=== PATIENT | male | born 1955 | race Hispanic/Latino ===

== ENCOUNTER → 2020-03-31 | Day surgery (SDC) | payer MEDICARE, OTHER ==
[2020-03-26 12:28] LABS: BASOPHILS % 0.9 % (0.0-1.0); EOSINOPHILS # (AUTO) 0.1 (0.0-0.4); EOSINOPHILS % 2.2 % (0.0-6.0); HEMATOCRIT 30.2 % (38.2-49.6); HEMOGLOBIN 9.2 g/dL (14.0-18.0); LYMPHOCYTES # (AUTO) 0.8 (1.0-3.2); LYMPHOCYTES % 24.3 % (18.0-39.1); MEAN CORPUSCULAR HEMOGLOBIN 31.4 pg (28-32); MEAN CORPUSCULAR HGB CONC 30.5 g/dL (31-35); MEAN CORPUSCULAR VOLUME 103.1 fL (81-99); MONOCYTES # (AUTO) 0.5 (0.2-0.8); MONOCYTES % 16.2 % (4.4-11.3); NEUTROPHILS # (AUTO) 1.8 (2.1-6.9); NEUTROPHILS % 55.8 % (38.7-80.0); RED BLOOD COUNT 2.93 x10e6/uL (4.3-5.7); RED CELL DISTRIBUTION WIDTH 17.3 % (11.7-14.4)
[2020-03-26 12:34] LABS: PLATELET COUNT 30 x10e3/uL (140-360)
[2020-03-26 12:46] LABS: INR 1.52; PROTHROMBIN TIME 19.2 seconds (11.9-14.5)
[2020-03-26 12:47] LABS: PARTIAL THROMBOPLASTIN TIME 41.1 seconds (23.8-35.5)
[2020-03-26 12:51] LABS: ALBUMIN 1.9 g/dL (3.5-5.0); ALBUMIN/GLOBULIN RATIO 0.4 (0.8-2.0); ANION GAP 13.7 mmol/L (8-16); CALCIUM 7.8 mg/dL (8.4-10.2); CREATININE, SERUM 8.24 mg/dL (0.72-1.25); POTASSIUM 3.7 mmol/L (3.5-5.1)
--- NOTE | 2020-03-26 13:28 | Diagnostic Imaging Report ---
X-ray chest 2 views Comparison: None History: Preop Findings: Central airways unremarkable. Atherosclerotic tortuous aorta. Other mediastinal contours unremarkable. No focal lung disease. Left subpulmonic effusion. No pneumothorax. No acute skeletal abnormalities. Upper abdomen unremarkable. Impression: Possible left subpulmonic pleural effusion. Signed by: Jeremiah Coronado MD on 03/26/2020 1:25 PM
[~2020-03-31] MED LIST: CEFAZOLIN SOD 1 GM/NS 50ML 100 ML IV ONE; DEXAMETHASONE SOD PHOS INJ 4 MG/ML VIAL ONE; DIALYVITE 800-1 EACH PO; DIALYVITE TABL1 EACH PO; ENBREL50 MG/1 ML INJ; EPINEPHRINE 1 MG/ML 30ML VIAL ONE; FENTANYL CITRATE/PF 100MCG/2 ML INJ ONE; GLYCOPYRROLATE INJ 0.2 MG/ML VIAL ONE; HYDROCODONE/APAP 5MG-325MG TAB ONE; HYDROXYCHLOROQ200 MG PO; LIDOCAINE HCL 2% LOCAL INJ 5 ML SDV VIAL INJ ONE; MOBIC7.5 MG PO; NEOSTIGMINE 1 MG/ML 10ML VIAL ONE; ONDANSETRON HCL INJ 2MG/ML 2ML 2 MG/ML VIAL ONE; PANTOPRAZOLE SO40 MG PO; PREDNISONE10 MG PO; PROPOFOL IV EMULSION 10 MG/ML 20 ML VIAL ONE; REVATIO20 MG PO; ROPINIROLE HCL1 MG PO; SEVOFLURANE INHAL SOLN 250 ML PEN BTL ONE; SODIUM CHLORIDE 0.9% 500ML 500 ML ONE; SUCRALFATE1 GM PO
[2020-03-31 05:54] LABS: BASOPHILS % 0.5 % (0.0-1.0); EOSINOPHILS % 0.5 % (0.0-6.0); HEMATOCRIT 32.2 % (38.2-49.6); HEMOGLOBIN 9.7 g/dL (14.0-18.0); LYMPHOCYTES # (AUTO) 0.8 (1.0-3.2); LYMPHOCYTES % 19.2 % (18.0-39.1); MEAN CORPUSCULAR HEMOGLOBIN 30.9 pg (28-32); MEAN CORPUSCULAR HGB CONC 30.1 g/dL (31-35); MEAN CORPUSCULAR VOLUME 102.5 fL (81-99); MONOCYTES # (AUTO) 0.5 (0.2-0.8); MONOCYTES % 12.4 % (4.4-11.3); NEUTROPHILS # (AUTO) 2.8 (2.1-6.9); NEUTROPHILS % 66.5 % (38.7-80.0); RED BLOOD COUNT 3.14 x10e6/uL (4.3-5.7); RED CELL DISTRIBUTION WIDTH 17.6 % (11.7-14.4)
[2020-03-31 06:17] LABS: INR 1.56; PROTHROMBIN TIME 19.6 seconds (11.9-14.5)
[2020-03-31 06:18] LABS: PARTIAL THROMBOPLASTIN TIME 39.2 seconds (23.8-35.5)
[2020-03-31 06:21] LABS: ALBUMIN 2.1 g/dL (3.5-5.0); ALBUMIN/GLOBULIN RATIO 0.4 (0.8-2.0); ANION GAP 11.8 mmol/L (8-16); CALCIUM 7.6 mg/dL (8.4-10.2); POTASSIUM 3.8 mmol/L (3.5-5.1)
[2020-03-31 06:31] LABS: PLATELET COUNT 40 x10e3/uL (140-360)
[2020-03-31 10:05] VITALS: BP 153/75
--- NOTE | 2020-03-31 15:13 | Operative Report ---
DATE OF PROCEDURE: 03/31/2020 SURGEON: LUPE THOMAS MD PLACE OF SURGERY: [facility]. HISTORY: Mr. Bright is a well-known patient of mine, being seen for ongoing pain of his left shoulder secondary to underlying left shoulder rotator cuff and labral tear of the shoulder impingement and arthritic changes. The patient elected to forgo any further conservative treatment and proceed on with a left shoulder arthroscopy. The risks and benefits of surgery have been outlined to him, consisting but not limited to the following infection, blood loss, nerve, vessel or tendon injury, DVT, ongoing pain, or stiffness. The patient was seen and identified in the preop holding area and the left shoulder was marked by myself and the patient agreed. The patient was then brought back to the operative suite. He was given a regional interscalene block by anesthesia in the preop holding area. Time-out was taken for Mr. Von Bright for a diagnostic arthroscopy of his left shoulder and all were in agreement including nursing staff, anesthesia, and myself. The patient was then given a successful general intubation anesthetic and then transferred over to the surgical table. The patient then placed in the beach chair position with the left shoulder fully exposed. The left shoulder was then sterilely prepped and draped in usual standard fashion. The shoulder was then inflated with 30 mL of sterile saline. A 15 [place] blade was then used to make the initial skin incision along the posterior aspect. Blunt trocar was inserted. Upon examination of the anterior compartment, patient has significant type 3 degenerative labral tear noted. He has significant fraying of the labrum as well as the biceps tendon with a near complete rupture. The rotator cuff tear was identified and mildly retracted. He also had multiple rising loose bodies noted, ranging from a smallest 2 to 3 mm in size as large as 5 to 6. The patient's secondary anterior portion as well as lateral portals made to assist removal of rising loose bodies. This was done using an arthroscopic grasper and shaver. The labrum was then debrided using a 4.0 arthroscopic shaver taking the labrum down to a smooth contoured surface. The undersurface of the fraying of the biceps tendon was also debrided. Examination of the posterior labrum showed some mild frying, but otherwise intact. Some underlying villonodular synovitis noted. Following this time, through the posterior portal, a 4.0 shaver was used to remove the synovectomy was completed. Attention then turned to the subacromial space. The subacromial space shows some marked arthritic changes at AC joint with marked narrowing and shoulder impingement. Through the lateral and posterior portal, a 4.0 shaver and bur was then used to complete the arthroscopic acromioplasty. The degenerative AC meniscus and distal clavicle were also resected using a 4.0 bur and shaver, removing approximately 1 cm of the distal clavicle in conjunction with a degenerative AC meniscus and the arthroscopic distal clavicle resection was carried out and completed. Again, the complete rotator cuff tear was identified. There was some mild retraction noted, end of the tear was debrided. The tear was then localized and a small incision was made locally over the tear with a 10 x 4 blade. The dissection was carried down to the rotator cuff tear was identified. Upon which time, the bony bed was abraded and a 6.5 Mitek Healix anchor was deployed and four pairs of sutures limb was passed through the rotator cuff tendon and tied down reattaching the tendon back down to his rotator cuff insertion. Please add this following. Prior to the rotator cuff repair, once the incision was made, the biceps tendon was identified. Upon which time, we did a localized proximal biceps tenodesis, reattached, securing the tendon into the trochlear groove using a drill guide and tunnels and suture one Ethibond to reattach the biceps tendon back into the trochlear groove and the biceps tenodesis was completed. After completion of biceps tenodesis, attention was then turned to the rotator cuff tear. After completion of the rotator cuff tear, the incision was washed out. Deep layer closed using #1 Ethibond, 0 Vicryl, 2-0 Vicryl, and skin reapproximated with leslie and the patient placed in Xeroform compressive dressing and an abduction shoulder immobilizer was applied and the patient was assessed, extubated, transferred to PACU in stable condition. PREOPERATIVE DIAGNOSES: 1. Left shoulder rotator cuff tear. 2. Left shoulder labral tear. 3. Left shoulder impingement, AC arthrosis. POSTOPERATIVE DIAGNOSES: 1. Type 3 degenerative labral tear. 2. Villonodular synovitis of the left shoulder. 3. Complete rotator cuff tear of the left shoulder. 4. Left shoulder impingement, AC arthrosis. 5. Near complete rupture of the proximal biceps tendon. 6. Multiple rice/ loose bodies. PROCEDURES: 1. Diagnostic arthroscopy of the left shoulder with a type 3 labral debridement. 2. Arthroscopic synovectomy of the left shoulder villonodular synovitis. 3. Removal of multiple rice/ loose bodies of the left shoulder, 2-6 mm in size number. 4. Arthroscopic subacromial decompression, i.e. acromioplasty. 5. Arthroscopic distal clavicle resection i.e., Cyndee procedure. 6. Proximal biceps tenodesis. 7. Mini open rotator cuff repair/reconstruction of the left shoulder rotator cuff tendons. ANESTHESIA: General with regional block. ESTIMATED BLOOD LOSS: Less than 5 to 10 mL. SPECIMEN: Bone and soft tissue. COMPLICATIONS: None. CONDITIONS: Stable to PACU. The patient was seen in PACU. Dressings are clean and dry. Capillary refills are brisk. I did attempt to call his family member at the phone number that was given to me. There is no reply at [phone]. Discharge wound care instructions were given to nursing staff as well as the patient prior to surgery. Patient discharged home with Keflex as well as [place]. Asked to follow up with [facility] in 12 to 14 days. MD LAWRENCE [place]/NIDHI /[id number] ACACIA
== END | disposition home or self-care (01) ==
LOC: OR 05:00
PROVIDERS: ATTEND Orthopaedic Surgery
DX: S43.422A Sprain of left rotator cuff capsule, initial encounter (principal); S43.432A Superior glenoid labrum lesion of left shoulder, initial encounter; S46.212A Strain of muscle, fascia and tendon of other parts of biceps, left arm, initial encounter; M75.52 Bursitis of left shoulder; M19.012 Primary osteoarthritis, left shoulder; S43.421A Sprain of right rotator cuff capsule, initial encounter; M24.012 Loose body in left shoulder; M19.011 Primary osteoarthritis, right shoulder; G56.01 Carpal tunnel syndrome, right upper limb; G56.02 Carpal tunnel syndrome, left upper limb; I12.0 Hypertensive chronic kidney disease with stage 5 chronic kidney disease or end stage renal disease; N18.6 End stage renal disease; K21.9 Gastro-esophageal reflux disease without esophagitis; R00.1 Bradycardia, unspecified; K74.60 Unspecified cirrhosis of liver; B19.20 Unspecified viral hepatitis C without hepatic coma; D69.6 Thrombocytopenia, unspecified; X58.XXXA Exposure to other specified factors, initial encounter; Z88.8 Allergy status to other drugs, medicaments and biological substances; Z01.810 Encounter for preprocedural cardiovascular examination; Z01.812 Encounter for preprocedural laboratory examination; Z01.818 Encounter for other preprocedural examination; Z11.59 Encounter for screening for other viral diseases; Z99.2 Dependence on renal dialysis
CPT/HCPCS: 23410; 29824; 29828; 36415 ×2; 71046; 80053 ×2; 85025 ×2; 85610 ×2; 85730 ×2; 93005; C1713; J0690; J1100; J2001; J2405; J2704; J2710; J3010; J7040; U0002